=== PATIENT | female | born 1995 | race Caucasian/White ===

== ENCOUNTER 2023-04-10 09:22 | Emergency (ER) | payer BC ==
[2023-04-10] MEDS ORDERED: LIDOCAINE 5% TOPICAL PATCH TP ONE (09:30)
[2023-04-10] MEDS ORDERED: IBUPROFEN 400 MG TABLET (FP) PO ONE (09:30)
[2023-04-10] MEDS ORDERED: ACETAMINOPHEN 325 MG TABLET (FP) PO ONE (09:35)
[2023-04-10] MEDS ORDERED: ACETAMINOPHEN 325 MG TABLET (FP) ONE (09:36)
[2023-04-10] MEDS ORDERED: LIDOCAINE 5% TOPICAL PATCH ONE (09:36)
[2023-04-10 09:52] VITALS: BP 107/79; PULSE 67; RESP 16; TEMP 99.4; BMI 22.7
[2023-04-10] MEDS ORDERED: LIDOCAINE PATCH REMOVAL MC ONE (22:00)
== END 2023-04-10 10:43 | disposition home or self-care (01) ==
LOC: FER 09:22
DX: M54.50 Low back pain, unspecified (principal)
CPT/HCPCS: 99283-25